=== PATIENT | male | born 1940 | race Caucasian/White ===

== ENCOUNTER 2020-03-31 14:14 | Inpatient (IN) | payer MEDICARE ==
[2020-03-31] MEDS ORDERED: solu-MEDROL 125 MG IV ONE (15:03)
[2020-03-31] MEDS ORDERED: VENTOLIN COMMON CANISTER IH PRN (15:04)
[2020-03-31] MEDS ORDERED: BABY ASPIRIN 81 MG CHEW PO ONE (15:04)
[2020-03-31] MEDS ORDERED: BABY ASPIRIN 81 MG CHEW ONE (15:37)
[2020-03-31] MEDS ORDERED: solu-MEDROL 125 MG ONE (15:37)
[2020-03-31 15:48] LABS: Absolute Neutrophil Ct (ANC) 4.37 (1.4-6.9); BASOPHIL % 0.4 % (0.0-0.4); Basophil (Absolute #) 0.02 (0-0.4); Eosinophil % 0.2 % (0.00-5.0); Eosinophil (Absolute #) 0.01 (0-0.5); Hematocrit 43.2 % (42-50); Hemoglobin 14.6 gm/dl (12.5-18.0); Lymphocytes % 12.4 % (24.0-44.0); Mean Cell Volume 87.8 fl (78-100); Mean Corpuscular Hemoglobin 29.7 pg (26-32); Mean Corpuscular Hgb Concent. 33.8 g/dl (32-36); Mean Platelet Volume 10.6 fl (7.5-11.0); Monocyte (Absolute #) 0.53 (0.0-1.3); Monocytes % 9.4 % (0.0-12.0); Neutrophil % 77.6 % (36.0-66.0); Platelet Count 180 K/mm3 (150-450); Red Blood Count 4.92 M/mm3 (4.1-5.6); Red Cell Distribution Width 15.9 % (11.5-14.0); White Blood Count 5.6 K/mm3 (4.0-10.5)
[2020-03-31 15:48] LABS: A-aADO2 119; ABG HEMOGLOBIN 15.1; ABG POTASSIUM 3.8 (3.5-5.1); ARTERIAL BLD GAS O2 SATURATION 95.5 % (95-100); ARTERIAL BLOOD GAS BASE EXCESS 0.9 (-2.0-2.0); ARTERIAL BLOOD GAS FIO2 32 %; ARTERIAL BLOOD GAS PCO2 32 mmHg (35-45); ARTERIAL BLOOD GAS PO2 69 mmHg (75-100); ARTERIAL BLOOD GAS pH 7.48 (7.35-7.45); CARBOXYHEMOGLOBIN 1.6 % THgb (0.0-6.9); HCO3- 23.8 (22-28); HGB O2 SAT 92.9 g/dF (94-100); Lactic Acid 0.9 (0.4-2.0); Methhemoglobin 1.1 % (1.4-1.5); paO2 pAO1 0.37
[2020-03-31 15:49] LABS: ABG SITE RIGHT RADIAL; ALLEN TEST OK? YES
--- NOTE | 2020-03-31 15:49 | ERPHSYRPT ---
- History of Present Illness Time Seen by Provider: 03/31/20 14:39 Source: patient Exam Limitations: no limitations Patient Subjective Stated Complaint: Pt began getting short of breath and coughing for the past couple of days that appears to be getting worse, pt also states that he has been having confusion too Triage Nursing Assessment: Pt brought self to the ER, hypertensive, hypoxic, pt's O2 was 80% on arrival and placed on 4L NC and it went to 97%, upper lobes clear, lower lobes diminished, pulses normal, denies pain, dry cough, skin n/w/d Physician History: 80 years old fairly healthy male presented in the ER with chief complaint of progressively worsening shortness of breath for the last 2 to 3 days initially with activity and now even at resting where he feels that he cannot catch a good breath in. Patient also report nonproductive cough associated with it along with decreased appetite/change in taste. Denies any nausea vomiting or diarrhea. No chest pain but has some tightness with shortness of breath especially on activity. No known COVID-19 sick contact. Patient also report experiencing transient episodes of confusion which resolved on its own without any focal numbness tingling or weakness. No difficulty speech or vision. On presentation in the ER his oxygen saturation is low 80s, placed on 4 L oxygen at improved in upper 90s. Patient report he is feeling better since he has been on oxygen on presentation. Timing/Duration: day(s) (2), gradual onset, worse Activities at Onset: activity Severity of Dyspnea-Max: moderate Severity of Dyspnea-Current: moderate Possible Cause: no prior episodes Modifying Factors: Improves With: oxygen. Worsens With: activity, coughing, deep breath, exertion Associated Symptoms: cough, loss of appetite, wheezing, weakness, chills, tightness, No productive cough Allergies/Adverse Reactions: Penicillins Allergy (Verified 03/31/20 14:32) Home Medications: Rivaroxaban [Xarelto] 20 mg PO DAILY 03/31/20 [History] Travel Risk - International Travel Have you traveled outside of the country in past 3 weeks: No - Coronavirus Screening Are you exhibiting any of the following symptoms?: No Close contact with a COVID-19 positive Pt in past 14-21 Days: No - Review of Systems Constitutional: Fatigue, Malaise, Weakness Eyes: No Symptoms Ears, Nose, & Throat: Nose Congestion Respiratory: Cough, Dyspnea, Dyspnea on Exertion (CERVANTES), Wheezing Cardiac: No Symptoms Abdominal/Gastrointestinal: No Symptoms Genitourinary Symptoms: No Symptoms Musculoskeletal: Myalgias Skin: No Symptoms Psychological: No Symptoms Endocrine: No Symptoms Hematologic/Lymphatic: No Symptoms Immunological/Allergic: No Symptoms - Past Medical History Pertinent Past Medical History: Yes Other Medical History: 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 - Past Surgical History Past Surgical History: Yes Gastrointestinal: Cholecystectomy Musculoskeletal: Orthopedic Surgery Other Surgical History: muscle flap right calf - Social History Smoking Status: Never smoker Exposure to second hand smoke: No Drug Use: none Patient Lives Alone: Yes - Nursing Vital Signs Nursing Vital Signs: Initial Vital Signs Temperature 99.4 F 03/31/20 14:16 Pulse Rate 90 03/31/20 14:16 Respiratory Rate 22 03/31/20 14:16 Blood Pressure 167/82 03/31/20 14:16 O2 Sat by Pulse Oximetry 90 L 03/31/20 14:16 Pain Scale Pain Intensity 0 - Physical Exam General Appearance: mild distress, alert Eye Exam: PERRL/EOMI, eyes nml inspection Ears, Nose, Throat Exam: hearing grossly normal, pharyngeal erythema Neck Exam: normal inspection, non-tender, supple, full range of motion Respiratory Exam: diminished breath sounds, accessory muscle use, crackles/ra les, wheezing Cardiovascular/Chest Exam: normal heart sounds, regular rate/rhythm Abdominal/Gastrointestinal Exam: soft, normal bowel sounds, No tenderness Extremity Exam: non-tender, normal range of motion Neurologic Exam: alert, oriented x 3, cooperative, car top bolter II-XII nml as tested, normal mood/affect, nml cerebellar function, sensation nml, No motor deficits, No sensory deficit Skin Exam: normal color SpO2 Interpretation: normal SpO2: 94 O2 Delivery: Nasal Cannula - Course EKG Interpreted by Me: RATE (88), Sinus Rhythm, NORMAL AXIS, Right Bundle Branch Block, Other (ST depression in lateral leads) Ordered Tests: Active Orders 24 hr Category Date Time Status Car Hop STAT Care 03/31/20 15:04 Active EKG-ER Only STAT Care 03/31/20 15:03 Active IV Insertion STAT Care 03/31/20 15:03 Active NPO (ED) STAT Care 03/31/20 15:03 Active CHEST 2 VIEWS (PA AND LAT) Stat Exams 03/31/20 15:04 Completed CHEST WITH CONTRAST [CT] Stat Exams 03/31/20 16:04 Completed ARTERIAL BLOOD GASES Stat Lab 03/31/20 15:03 Completed BLOOD CULTURE Stat Lab 03/31/20 14:37 Received CBC W DIFF Stat Lab 03/31/20 15:30 Completed CMP Stat Lab 03/31/20 15:30 Completed D-DIMER QUANTITATIVE Stat Lab 03/31/20 15:30 Completed Lactic Acid Stat Lab 03/31/20 15:03 Completed MAGNESIUM Stat Lab 03/31/20 15:30 Completed NT PRO BNP Stat Lab 03/31/20 15:30 Completed PROTIME WITH INR Stat Lab 03/31/20 15:30 Completed PTT Stat Lab 03/31/20 15:30 Completed TROPONIN Q3H Lab 03/31/20 15:30 Completed TROPONIN Q3H Lab 03/31/20 18:15 Ordered TROPONIN Q3H Lab 03/31/20 21:15 Ordered TROPONIN Q3H Lab 04/01/20 00:15 Ordered TROPONIN Q3H Lab 04/01/20 03:15 Ordered UA W/RFX UR CULTURE Stat Lab 03/31/20 15:03 Ordered Oxygen NASAL CANNULA 2 lpm RT 03/31/20 16:02 Active Respiratory MDI STAT RT 03/31/20 16:02 Active Respiratory Therapy Assessment DAILY RT 03/31/20 16:03 Active Transfer Order Routine Transfer 03/31/20 Ordered Medication Summary Generic Name Dose Route Start Last Admin Trade Name Freq PRN Reason Stop Dose Admin Albuterol Sulfate 4 puff 03/31/20 15:04 03/31/20 15:25 Ventolin Common Canister IH 04/30/20 15:03 4 puff Q4H PRN PRN Administration SHORTNESS OF BREATH/WHEEZING Remdesivir 200 mg/ Sodium 250 mls @ 125 mls/hr 03/31/20 17:10 Chloride IV 03/31/20 19:09 ONCE ONE Discontinued Medications Generic Name Dose Route Start Last Admin Trade Name Freq PRN Reason Stop Dose Admin Aspirin 324 mg 03/31/20 15:04 03/31/20 15:42 Baby Aspirin 81 Mg Chew PO 03/31/20 15:05 324 mg STAT ONE Administration Aspirin Confirm 03/31/20 15:37 Baby Aspirin 81 Mg Chew Administered 03/31/20 15:38 Dose 324 mg .ROUTE .STK-MED ONE Dexamethasone Sodium Phosphate 8 mg 03/31/20 17:10 Decadron 4 Mg Inj IV 03/31/20 17:11 STAT ONE Azithromycin 500 mg in 250 mls @ 250 mls/hr 03/31/20 15:51 03/31/20 17:12 Zithromax 500 Mg/ 250 Ml Nacl Premix IV 03/31/20 16:50 250 mls/hr STAT STA 250 mls/hr Administration Ceftriaxone Sodium/Dextrose 2 g in 50 mls @ 100 mls/hr 03/31/20 15:51 03/31/20 16:51 Rocephin 2 Gm-D5w 50ml Bag IV 03/31/20 16:20 100 mls/hr STAT STA 100 mls/hr Administration Ceftriaxone Sodium/Dextrose Confirm 03/31/20 16:48 Rocephin 2 Gm-D5w 50ml Bag Administered 03/31/20 16:49 Dose 2 g in 50 mls @ ud IV .STK-MED ONE Azithromycin Confirm 03/31/20 17:10 Zithromax 500 Mg/ 250 Ml Nacl Premix Administered 03/31/20 17:11 Dose 500 mg in 250 mls @ ud IV .STK-MED ONE Methylprednisolone Sodium Succinate 125 mg 03/31/20 15:03 03/31/20 15:42 Solu-Medrol 125 Mg IV 03/31/20 15:04 125 mg STAT ONE Administration Methylprednisolone Sodium Succinate Confirm 03/31/20 15:37 Solu-Medrol 125 Mg Administered 03/31/20 15:38 Dose 125 mg .ROUTE .STK-MED ONE Lab/Rad Data: Laboratory Result Diagrams 03/31/20 15:30 03/31/20 15:30 Laboratory Results 03/31/20 03/31/20 03/31/20 Range/Units 15:54 15:30 15:30 WBC (4.0-10.5) K/mm3 RBC (4.1-5.6) M/mm3 Hgb (12.5-18.0) gm/dl Hct (42-50) % MCV (78-100) fl MCH (26-32) pg MCHC (32-36) g/dl RDW (11.5-14.0) % Plt Count (150-450) K/mm3 MPV (7.5-11.0) fl Gran % (36.0-66.0) % Eos # (Auto) (0-0.5) Absolute Lymphs (auto) (1.0-4.6) Absolute Monos (auto) (0.0-1.3) Lymphocytes % (24.0-44.0) % Monocytes % (0.0-12.0) % Eosinophils % (0.00-5.0) % Basophils % (0.0-0.4) % Absolute Granulocytes (1.4-6.9) Basophils # (0-0.4) PT 14.9 H (8.83-12.87) SECONDS INR 1.31 (0.8-3.0) APTT 32.9 (24.1-36.1) SECONDS D-Dimer 1708 H* (215-500) ng/mL Puncture Site pCO2 (35-45) mmHg pO2 (75-100) mmHg Base Excess (-2.0-2.0) O2 Saturation (94-100) g/dF ABG pH (7.35-7.45) ABG HCO3 (22-28) ABG O2 Sat (Measured) (95-100) % Jeremie Test A-a Gradient a/A Ratio Hemoglobin Carboxyhemoglobin (0.0-6.9) % THgb Methemoglobin (1.4-1.5) % Potassium (3.5-5.1) Temperature C POC O2 Flow Rate % Sodium (137-145) mmol/L Chloride (98-107) mmol/L Carbon Dioxide (22-30) mmol/L Anion Gap (5-15) MEQ/L BUN (9-20) mg/dL Creatinine (0.66-1.25) mg/dL Estimated GFR ML/MIN Glucose (74-106) mg/dL Lactic Acid (0.4-2.0) Calcium (8.4-10.2) mg/dL Magnesium (1.6-2.3) mg/dL Total Bilirubin (0.2-1.3) mg/dL AST (17-59) U/L ALT (0-50) U/L Alkaline Phosphatase (38-126) U/L Troponin I 0.097 H* (0.000-0.034) ng/mL NT-Pro-B Natriuret Pep (0-1800) pg/mL Serum Total Protein (6.3-8.2) g/dL Albumin (3.5-5.0) g/dL SARS-CoV-2 (PCR) POSITIVE A (NEGATIVE) 03/31/20 03/31/20 03/31/20 Range/Units 15:30 15:30 15:03 WBC 5.6 (4.0-10.5) K/mm3 RBC 4.92 (4.1-5.6) M/mm3 Hgb 14.6 (12.5-18.0) gm/dl Hct 43.2 (42-50) % MCV 87.8 (78-100) fl MCH 29.7 (26-32) pg MCHC 33.8 (32-36) g/dl RDW 15.9 H (11.5-14.0) % Plt Count 180 (150-450) K/mm3 MPV 10.6 (7.5-11.0) fl Gran % 77.6 H (36.0-66.0) % Eos # (Auto) 0.01 (0-0.5) Absolute Lymphs (auto) 0.70 L (1.0-4.6) Absolute Monos (auto) 0.53 (0.0-1.3) Lymphocytes % 12.4 L (24.0-44.0) % Monocytes % 9.4 (0.0-12.0) % Eosinophils % 0.2 (0.00-5.0) % Basophils % 0.4 (0.0-0.4) % Absolute Granulocytes 4.37 (1.4-6.9) Basophils # 0.02 (0-0.4) PT (8.83-12.87) SECONDS INR (0.8-3.0) APTT (24.1-36.1) SECONDS D-Dimer (215-500) ng/mL Puncture Site RIGHT RADIAL pCO2 32 L (35-45) mmHg pO2 69 L (75-100) mmHg Base Excess 0.9 (-2.0-2.0) O2 Saturation 92.9 L (94-100) g/dF ABG pH 7.48 H (7.35-7.45) ABG HCO3 23.8 (22-28) ABG O2 Sat (Measured) 95.5 (95-100) % Jeremie Test YES A-a Gradient 119 a/A Ratio 0.37 Hemoglobin 15.1 Carboxyhemoglobin 1.6 (0.0-6.9) % THgb Methemoglobin 1.1 L (1.4-1.5) % Potassium 3.8 3.8 (3.5-5.1) Temperature 37.0 C POC O2 Flow Rate 32 % Sodium 133 L (137-145) mmol/L Chloride 100 (98-107) mmol/L Carbon Dioxide 26 (22-30) mmol/L Anion Gap 10.5 (5-15) MEQ/L BUN 9 (9-20) mg/dL Creatinine 0.51 L (0.66-1.25) mg/dL Estimated GFR > 60.0 ML/MIN Glucose 104 (74-106) mg/dL Lactic Acid 0.9 (0.4-2.0) Calcium 8.4 (8.4-10.2) mg/dL Magnesium 1.8 (1.6-2.3) mg/dL Total Bilirubin 0.80 (0.2-1.3) mg/dL AST 48 (17-59) U/L ALT 26 (0-50) U/L Alkaline Phosphatase 53 (38-126) U/L Troponin I (0.000-0.034) ng/mL NT-Pro-B Natriuret Pep 527 (0-1800) pg/mL Serum Total Protein 6.6 (6.3-8.2) g/dL Albumin 3.6 (3.5-5.0) g/dL SARS-CoV-2 (PCR) (NEGATIVE) - Progress Progress: improved, re-examined Air Movement: fair Progress Note: 03/31/20 17:15 Patient was hypoxic on presentation with sats in low 80s, placed on 4 L oxygen and improved to 96% and his distress is also improved. Patient is feeling better. He is given albuterol inhaler and steroids. EKG showed sinus rhythm with some ST depression in lateral leads but patient denies any chest pain. Initial troponin 0 0.097 and chest x-ray consistent with bilateral airspace disease. I believe part of elevated troponin is secondary to hypoxemia and lung disease. We will continue to monitor troponins. He is started on Jacob ephin/Zithromax. With patient's hypoxemia/shortness of breath and transient confusions is high risk for COVID-19 and I have obtained testing which is positive. He is given a dose of remdesivir. I have discussed with Dr. Farfan and patient is being admitted. Blood Culture(s) Obtained: Yes Antibiotics given: Yes Discussed with : Other (Keturah) Will see patient in: hospital (full admit) Counseled pt/family regarding: lab results, diagnosis, rad results - Departure Departure Disposition: In-patient Admission Clinical Impression: Elevated troponin Respiratory failure Qualifiers: Chronicity: acute Respiratory failure complication: hypoxia Qualified Code(s): J96.01 - Acute respiratory failure with hypoxia Pneumonia Qualifiers: Pneumonia type: due to unspecified organism Laterality: bilateral Lung location: unspecified part of lung Qualified Code(s): J18.9 - Pneumonia, u nspecified organism Condition: Fair Critical Care Time: Yes Critical Care Time(excluding separately billable procedures): Critical 30-74 mins Referrals: Provider,Unknown [Primary Care Provider] -
[2020-03-31] MEDS ORDERED: Zithromax 500 MG/ 250 ML NaCl Premix 500 MG/250 ML IVPB IV STA (15:51)
[2020-03-31] MEDS ORDERED: ROCEPHIN 2 Gm-D5w 50ML BAG** 2 G/50 ML IVPB IV STA (15:51)
[2020-03-31 15:54] LABS: INR 1.31 (0.8-3.0); PROTIME 14.9 SECONDS (8.83-12.87)
[2020-03-31 15:57] LABS: PTT 32.9 SECONDS (24.1-36.1)
[2020-03-31 16:07] LABS: ALBUMIN 3.6 g/dL (3.5-5.0); ALKALINE PHOSPHATASE 53 U/L (38-126); ANION GAP 10.5 MEQ/L (5-15); BLOOD UREA NITROGEN 9 mg/dL (9-20); CHLORIDE 100 mmol/L (98-107); Calcium 8.4 mg/dL (8.4-10.2); Carbon Dioxide 26 mmol/L (22-30); Creatinine 1 0.51 mg/dL (0.66-1.25); EST GLOMERULAR FILTRATION RATE > 60.0 ML/MIN; Glucose 104 mg/dL (74-106); MAGNESIUM 1.8 mg/dL (1.6-2.3); NT PRO BNP 527 pg/mL (0-1800); Potassium 3.8 mmol/L (3.5-5.1); SGOT/AST 48 U/L (17-59); SGPT/ALT 26 U/L (0-50); SODIUM 133 mmol/L (137-145); Total Protein 6.6 g/dL (6.3-8.2)
--- NOTE | 2020-03-31 16:17 | XRAY ---
Indication: Short of breath. Suspect Covid 19. Comparison: None PA/lateral chest limited by respiration/motion artifact. Diffuse left lung and lesser degree right lung airspace disease with tiny left effusion. Heart is borderline enlarged. Bony thorax intact.
[2020-03-31] MEDS ORDERED: ROCEPHIN 2 Gm-D5w 50ML BAG** 2 G/50 ML IVPB IV ONE (16:48)
--- NOTE | 2020-03-31 17:01 | XRAY ---
Indication: Cough and short of breath. Elevated d-dimer. Suspect Covid 19. Multiple contiguous axial images obtained through the chest using 100 cc Isovue 370 contrast and PE protocol. Comparison: None There is good opacification of the pulmonary arteries including lobar and segmental branches. No pulmonary embolus. Heart is enlarged. Aorta is minimally arteriosclerotic without aneurysm/dissection. Tiny subcarinal calcified nodes. No pathologic mediastinal/hilar lymphadenopathy. Lungs demonstrates diffuse bilateral airspace disease, left greater than right. No consolidation or effusion. Bony thorax intact with mild degenerative changes throughout the spine. Limited upper abdomen demonstrates cholecystectomy and 3 cm noncalcified left adrenal gland mass possibly adenoma. Impression: 1. Negative pulmonary embolus. 2. Diffuse airspace disease, left greater than right without consolidation/effusion. 3. Cardiomegaly without CHF. 4. 3 cm left adrenal gland mass. Rule out adenoma. Outside comparison studies recommended if available. If not, a noncontrast exam or noncontrast MRI documenting fatty density could confirm.
[2020-03-31] MEDS ORDERED: REMDESIVIR 200 MG in Sodium Chloride 0.9% 250 ML 250 ML IV ONE ×2 (17:10→20:00)
[2020-03-31] MEDS ORDERED: Decadron 4 MG INJ IV ONE (17:10)
[2020-03-31] MEDS ORDERED: Zithromax 500 MG/ 250 ML NaCl Premix 500 MG/250 ML IVPB IV ONE (17:10)
[2020-03-31] MEDS ORDERED: Decadron 4 MG INJ ONE ×2 (17:48→22:42)
[2020-03-31] MEDS ORDERED: Zofran 4 MG/2 ML VIAL IV PRN (18:17)
[2020-03-31] MEDS ORDERED: HUMALOG SQ PRN (18:17)
[2020-03-31] MEDS ORDERED: TYLENOL 325 MG PO PRN (18:17)
[2020-03-31] MEDS ORDERED: REMDESIVIR IV ONE (18:52)
[2020-03-31] MEDS ORDERED: Sodium Chloride 0.9% 250 ML 250 ML IV ONE (18:52)
[2020-03-31] MEDS ORDERED: VENTOLIN COMMON CANISTER IH SCH (19:00)
[2020-03-31] MEDS ORDERED: DECADRON 10MG INJ. IV SCH (21:00)
[2020-03-31 21:21] LABS: A-aADO2 162; ABG HEMOGLOBIN 15.6; ABG POTASSIUM 3.9 (3.5-5.1); ABG SITE RIGHT BRACHIAL; ARTERIAL BLD GAS O2 SATURATION 99.1 % (95-100); ARTERIAL BLOOD GAS BASE EXCESS 0.9 (-2.0-2.0); ARTERIAL BLOOD GAS FIO2 44 %; ARTERIAL BLOOD GAS PCO2 32 mmHg (35-45); ARTERIAL BLOOD GAS PO2 112 mmHg (75-100); ARTERIAL BLOOD GAS pH 7.48 (7.35-7.45); CARBOXYHEMOGLOBIN 1.4 % THgb (0.0-6.9); HCO3- 23.8 (22-28); HGB O2 SAT 96.7 g/dF (94-100); paO2 pAO1 0.41
[2020-03-31] MEDS: Pepcid 20 MG VIAL IV SCH (23:53)
[2020-04-01 00:46] LABS: Appearance CLEAR (CLEAR); Bilirubin NEGATIVE (NEGATIVE); Blood NEGATIVE Ery/ul (0-5); Glucose NEGATIVE (NEGATIVE); Ketones SMALL (NEGATIVE); Leukocyte Esterase NEGATIVE (NEGATIVE); Nitrite NEGATIVE (NEGATIVE); Protein,Urine Dip NEGATIVE (Negative); Specific Gravity 1.019 (1.005-1.025); Urobilinogen NEGATIVE mg/dL (0-1)
[2020-04-01 03:55] LABS: ALBUMIN 3.1 g/dL (3.5-5.0); ALKALINE PHOSPHATASE 52 U/L (38-126); ANION GAP 10.2 MEQ/L (5-15); BLOOD UREA NITROGEN 11 mg/dL (9-20); CHLORIDE 105 mmol/L (98-107); Calcium 8.7 mg/dL (8.4-10.2); Carbon Dioxide 28 mmol/L (22-30); Creatinine 1 0.44 mg/dL (0.66-1.25); EST GLOMERULAR FILTRATION RATE > 60.0 ML/MIN; Glucose 149 mg/dL (74-106); Potassium 4.2 mmol/L (3.5-5.1); SGOT/AST 42 U/L (17-59); SGPT/ALT 26 U/L (0-50); SODIUM 139 mmol/L (137-145); Total Protein 5.8 g/dL (6.3-8.2)
[2020-04-01 05:30] LABS: Absolute Neutrophil Ct (ANC) 2.76 (1.4-6.9); BASOPHIL % 0.3 % (0.0-0.4); Basophil (Absolute #) 0.01 (0-0.4); Eosinophil % 0.3 % (0.00-5.0); Eosinophil (Absolute #) 0.01 (0-0.5); Hematocrit 46.6 % (42-50); Hemoglobin 15.4 gm/dl (12.5-18.0); Lymphocyte (Absolute #) 0.45 (1.0-4.6); Mean Cell Volume 88.4 fl (78-100); Mean Corpuscular Hemoglobin 29.2 pg (26-32); Mean Platelet Volume 11.2 fl (7.5-11.0); Monocyte (Absolute #) 0.23 (0.0-1.3); Monocytes % 6.6 % (0.0-12.0); Neutrophil % 79.8 % (36.0-66.0); Platelet Count 193 K/mm3 (150-450); Red Blood Count 5.27 M/mm3 (4.1-5.6); Red Cell Distribution Width 16.3 % (11.5-14.0); White Blood Count 3.5 K/mm3 (4.0-10.5)
[2020-04-01 06:11] LABS: Slide Review 1 YES
[2020-04-01] MEDS: Decadron 4 MG INJ IV SCH ×2 (09:18→21:52)
[2020-04-01] MEDS: Pepcid 20 MG VIAL IV SCH ×2 (09:18→21:52)
[2020-04-01] MEDS: XARELTO 10 MG TABLET PO SCH (09:19)
--- NOTE | 2020-04-01 09:49 | HP ---
CHIEF COMPLAINT: Confusion, cough. HISTORY OF PRESENT ILLNESS: The patient is a 80 year old white male who has been tired, coughing and he is confused which is unusual for him for the last five days. He finally went over to get a COVID test at the outpatient respiratory clinic. They would not do him because he did not have a respiratory situation. He called his own doctor who would not see him because he was coughing. He was driving around when the nurse from his primary doctor called him up and told him to the emergency room which they evaluated him and he had a positive COVID test. Chest x-ray which looks like COVID pneumonia and O2 of 80% on room air. With 5 liters of oxygen his O2 came up to 92% and he is presently at 3 with an O2 of about 88%. He is a nonsmoker, nondrinker. He lives by himself with his cocker spaniel who is blind for the last 12 years and working on getting dog care. He has a great sense of humor. I thought he was a little demented but really mostly just obtuse humor. He said he has had no belly aching. No myalgia. No fever that he knows of but his cough is more and more frequent and it has made his chest ache with coughing. He does not have any subdural heaviness, neck pain. He does not think that he has had infarct. He has had apparently pulmonary emboli before because he is on Xarelto. He states that he needs to be on that. This may well be related to horrible lower leg/knee injury on the right where they basically took his bone grafts and over a period of a year or two that the tibia had grown back it sounds like. MEDICATIONS: Xarelto. ALLERGIES: PENICILLINS. REVIEW OF SYSTEMS: HEENT: No problems hearing or seeing. CHEST: Frequent cough, dry, normally no cough. Shortness of breath at rest. CVS: No exertional chest pain, pressure. No radiation to the neck or arms. ABDOMEN: No nausea. Not hungry for five days which is unusual. EXTREMITIES: Numerous years ago probably ten he said he had a compound fracture of tib/fib lower leg which was shattered and Dr. Christy cruz at [place] at that time put it together. It has been several years and has healed up pretty well. There is no chronic infection in it. PHYSICAL EXAMINATION: The patient is alert, orientated. He is in pretty good shape for 80. He has a dry cough that is frequent. HEENT: Pupils equal and reactive to light. Hearing seems adequate. CHEST: Few crackles bilateral. CVS: No murmurs or gallops. ABDOMEN: Soft, obese. No tenderness or organomegaly. EXTREMITIES: Scars. Infection of the skin on the right leg. No edema of either leg. IMPRESSION: The patient has acute COVID symptomatic for several days with feeling of confusion and frequent dry cough. He had a positive D-dimer as suspected from the COVID and he has an elevated cardiac enzyme as we usually see however EKG is normal. He is having no chest pain. I think this is secondary to COVID, will keep him on monitoring for that and anticoagulated him. He has been started on Decadron and the other COVID medicines at this time and he is stable.
[2020-04-01] MEDS ORDERED: Zithromax 500 MG/ 250 ML NaCl Premix 500 MG/250 ML IVPB IV SCH (10:00)
[2020-04-01] MEDS ORDERED: ROCEPHIN 1 Gm-D5w 50 ml Bag** 1 G/50 ML IVPB IV SCH (10:00)
--- NOTE | 2020-04-01 11:51 | PROG NOTE ---
DIAGNOSES: 1) COVID pneumonia. 2) Hypertension. 3) Hypoxia. HISTORY: The patient was admitted from the emergency room yesterday. He feels markedly better. However, he is on 6 liters of oxygen and without any drops. He has a stopped up nose, frequent dry cough and diarrhea. He is very anxious to go home as soon as possible. He said he lives across the street. I explained to him with his level of oxygenation it was not safe especially just into this disease. He is agreeable person with a good attitude. PHYSICAL EXAMINATION: CHEST: Few crackles. CVS: Heart sounds regular. EXTREMITIES: No cyanosis. No edema. IMPRESSION: COVID pneumonia stable on nasal cannula at 4. On Xarelto for history of deep venous thrombosis as well as his D-dimer being elevated here. Will add plasma at this time.
[2020-04-01 14:27] LABS: ABO TYPING O; Antibody Screen NEGATIVE (NEGATIVE); RH TYPING POSITIVE
[2020-04-01] MEDS ORDERED: Sodium Chloride 0.9% 500 ML 500 ML IV ONE (14:32)
[2020-04-01] MEDS ORDERED: Sodium Chloride 0.9% 500 ML 500 ML IV SCH (14:45)
[2020-04-01] MEDS: VENTOLIN COMMON CANISTER IH PRN (15:55)
[2020-04-01] MEDS: REMDESIVIR 100 MG in Sodium Chloride 0.9% 100 ML IVPB 100 ML IV SCH (18:08)
[2020-04-01] MEDS: Bactroban OINTMENT TP SCH (21:52)
[2020-04-02] MEDS: VENTOLIN COMMON CANISTER IH PRN (08:40)
[2020-04-02 08:52] LABS: A-aADO2 482; ABG HEMOGLOBIN 15.9; ABG POTASSIUM 3.6 (3.5-5.1); ARTERIAL BLOOD GAS BASE EXCESS 2.8 (-2.0-2.0); ARTERIAL BLOOD GAS FIO2 80 %; ARTERIAL BLOOD GAS PCO2 35 mmHg (35-45); ARTERIAL BLOOD GAS pH 7.48 (7.35-7.45); CARBOXYHEMOGLOBIN 1.7 % THgb (0.0-6.9); HCO3- 26.1 (22-28); HGB O2 SAT 78.1 g/dF (94-100); Methhemoglobin 0.7 % (1.4-1.5); paO2 pAO1 0.09
[2020-04-02 08:53] LABS: ARTERIAL BLOOD GAS PO2 45 mmHg (75-100)
[2020-04-02] MEDS: Bactroban OINTMENT TP SCH ×2 (09:25→21:10)
[2020-04-02] MEDS: XARELTO 10 MG TABLET PO SCH (09:25)
[2020-04-02] MEDS: Pepcid 20 MG VIAL IV SCH ×2 (09:25→21:19)
[2020-04-02] MEDS: Decadron 4 MG INJ IV SCH ×2 (09:25→21:05)
[2020-04-02] MEDS: Ativan 1 MG PO PRN ×2 (09:25→18:03)
--- NOTE | 2020-04-02 09:50 | PROG NOTE ---
DATE: 04/02/2020 CHIEF COMPLAINT: Wants to be home, feels short of breath. HOSPITAL COURSE: The patient has bilateral COVID pneumonia. His oxygen demands have increased and he is now on nasal cannula at like 8 liters. His blood gas showed his pO2 was only like 45. Amazingly he is pink, talking and not really saying he is short of breath all the time. He has increased cough nonproductive. He has no GI complaints. CT scan showed diffuse airspace disease left greater than right without consolidation. He is anxious. He does not watch television. Worries about his dog. He cannot believe he's sick. He's always been so healthy. Once again we explained to him the disease process that the medicines help but will not quickly cure, that his body has to fight it off and it is going to take time. He finally agreed to take 0.5 mg of Ativan to try to control his anxiety since he does not read, will not watch television and spends his time on the phone with several friends, I guess. I will continue to increase his oxygen if needed. There is nothing else at this point left to add. He had plasma yesterday without problems. IMPRESSION: 1) COVID pneumonia. 2) Generalized anxiety. 3) Some delirium which he admits he is confused and cannot think like he normally does. PROGNOSIS: Guarded.
[2020-04-02] MEDS ORDERED: Haldol 5 MG IM PRN ×2 (13:53→21:40)
[2020-04-02] MEDS: REMDESIVIR 100 MG in Sodium Chloride 0.9% 100 ML IVPB 100 ML IV SCH (18:00)
[2020-04-02 19:46] VITALS: BP 146/84; PULSE 85
[2020-04-02] MEDS ORDERED: Tussionex Pennkinetic Susp PO SCH (21:45)
[2020-04-02] MEDS ORDERED: Tussionex Pennkinetic Susp ONE (21:45)
[2020-04-02] MEDS ORDERED: Ativan 2 MG/1 ML VIAL ONE (22:19)
[2020-04-02] MEDS ORDERED: Ativan 2 MG/1 ML VIAL IV ONE (22:23)
[2020-04-02] MEDS ORDERED: Phenergan 25 MG INJ ONE (22:30)
[2020-04-02] MEDS ORDERED: VERSED 5 MG/5 ML IV ONE (22:35)
[2020-04-02] MEDS ORDERED: Phenergan 25 MG INJ IV ONE (22:38)
[2020-04-02] MEDS ORDERED: Lasix 20 MG/2 ML IV ONE (22:43)
[2020-04-02] MEDS ORDERED: Lasix 20 MG/2 ML ONE (22:44)
[2020-04-02] MEDS ORDERED: Sodium Chloride 0.9% 1000 ML 1,000 ML ONE (22:48)
[2020-04-02] MEDS ORDERED: Lanoxin 0.5 MG/2 ML INJECTION IV ONE ×2 (22:50→23:10)
[2020-04-02] MEDS ORDERED: Lanoxin 0.5 MG/2 ML INJECTION ONE (22:51)
[2020-04-02 22:52] LABS: A-aADO2 627; ABG HEMOGLOBIN 16.4; ABG POTASSIUM 3.8 (3.5-5.1); ABG SITE RIGHT RADIAL; ALLEN TEST OK? YES; ARTERIAL BLD GAS O2 SATURATION 86.2 % (95-100); ARTERIAL BLOOD GAS BASE EXCESS -3.8 (-2.0-2.0); ARTERIAL BLOOD GAS FIO2 100 %; ARTERIAL BLOOD GAS PCO2 27 mmHg (35-45); ARTERIAL BLOOD GAS PO2 52 mmHg (75-100); ARTERIAL BLOOD GAS pH 7.45 (7.35-7.45); CARBOXYHEMOGLOBIN 1.5 % THgb (0.0-6.9); HCO3- 18.8 (22-28); HGB O2 SAT 84.3 g/dF (94-100); Methhemoglobin 0.8 % (1.4-1.5); paO2 pAO1 0.08
[2020-04-02] MEDS ORDERED: Versed 50 MG/ 10 Ml MDV*** 50 MG in Sodium Chloride 0.9% 250 ML 240 ML IV PRN (22:56)
[2020-04-02] MEDS ORDERED: Versed 50 MG/ 10 Ml MDV ONE (22:58)
[2020-04-02] MEDS ORDERED: Sodium Chloride 0.9% 250 ML 250 ML IV ONE (22:58)
[2020-04-03 00:08] LABS: ALBUMIN 3.3 g/dL (3.5-5.0); ALKALINE PHOSPHATASE 97 U/L (38-126); ANION GAP 12.4 MEQ/L (5-15); BLOOD UREA NITROGEN 17 mg/dL (9-20); CHLORIDE 108 mmol/L (98-107); Calcium 8.8 mg/dL (8.4-10.2); Carbon Dioxide 24 mmol/L (22-30); Creatinine 1 0.66 mg/dL (0.66-1.25); EST GLOMERULAR FILTRATION RATE > 60.0 ML/MIN; Glucose 183 mg/dL (74-106); Potassium 3.9 mmol/L (3.5-5.1); SGOT/AST 81 U/L (17-59); SGPT/ALT 33 U/L (0-50); SODIUM 141 mmol/L (137-145); Total Protein 6.2 g/dL (6.3-8.2)
[2020-04-03] MEDS ORDERED: Sodium Chloride 0.9% 1000 ML 1,000 ML ONE (00:19)
[2020-04-03] MEDS ORDERED: Zemuron 100 MG/10 ML IV ONE (00:33)
[2020-04-03] MEDS ORDERED: Dopamine 400 MG/D5W 250ML PREMIX 250 ML IV ONE (00:42)
[2020-04-03] MEDS ORDERED: EPINEPHRINE ABBOJECT 1 MG IV ONE (00:42)
[2020-04-03] MEDS ORDERED: ATROPINE SULFATE 1MG SYR ABBOJECT IV ONE (00:42)
[2020-04-03 01:31] LABS: Appearance CLEAR (CLEAR); Bilirubin NEGATIVE (NEGATIVE); Blood SMALL Ery/ul (0-5); Glucose NEGATIVE (NEGATIVE); Ketones NEGATIVE (NEGATIVE); Leukocyte Esterase NEGATIVE (NEGATIVE); Mucus SLIGHT /HPF (NEGATIVE); Nitrite NEGATIVE (NEGATIVE); Protein,Urine Dip >=500 (Negative); RBC 0-2 /HPF (0-2); Specific Gravity 1.022 (1.005-1.025); Urobilinogen NEGATIVE mg/dL (0-1)
[2020-04-03 03:09] VITALS: O2SAT 77
--- NOTE | 2020-04-07 13:33 | DS ---
ADMISSION DIAGNOSES: 1) COVID pneumonia. 2) Confusion from COVID. 3) History of deep venous thrombosis. DATE OF : 04/03/2020 at approximately 0100 hours. FINAL DIAGNOSIS/CAUSE OF : COVID PNEUMONIA. HOSPITAL COURSE: The patient presented to the hospital with some confusion, cough and was admitted with a positive COVID test. Extremely high D-dimer 1500 which had gone up to 8000 before being coded. The first day he was fairly comfortable and a little confused at night. Kept his O2 above 90. He had a fever. He was treated with convalescent plasma, Decadron 8 mg IV and Remdesivir in standard fashion. His troponin initially was mildly elevated at 0.102 and it did go up to 1.04. He had no chest pain except with coughing. On the night of , he deteriorated rather rapidly. He had some confusion during the afternoon. He fell asleep and slept until approximately 2200 hours when he got up to go to the toilet. He got very confused and agitated. The nurses finally got him to bed but he would not stop fighting, pushing and trying to get out of bed and calling out incomprehensively. They tried to sedate him with some Ativan, some Haldol and I was called in. At that time we gave some Phenergan which he quieted down. He was noted to be in atrial fibrillation with a rate of 150, blood pressure was 150/90. His O2 saturation initially was 60 and we managed to get it up to 82 with BiPAP 100%. After talking to the physician on the ICU at [facility], they asked us to intubate him for transfer. He was stable. He did eventually fight the intubation so we had to paralyze him and this was done fairly easy. He was intubated without difficulty. At that time though we lost blood pressure, heart rate in asystole and kind of a dying rhythm with no pulse. CPR was started immediately. He was treated with epinephrine and atropine and would have a slow rate. Occasionally would be able to palpate pulse but that always fell off within a minute or two. We did CPR for 45 minutes with no real sustainable rhythm. We had large amounts of blood coming out of the ET tube probably due to his anticoagulation and COVID pneumonia and that was pulled and we bagged him for the last ten minutes. Code was called because of no accessible rhythm was ever obtained. I called the daughter about 0150 hours and advised that her father from COVID pneumonia, cardiac arrest, respiratory arrest.
== END 2020-04-03 01:30 | disposition expired | DRG 177 ==
LOC: ED 14:14 → MED SURG 18:00
PROVIDERS: ADMIT Family Medicine; ATTEND Family Medicine
DX: U07.1 COVID-19 (principal); J12.89 Other viral pneumonia; R41.0 Disorientation, unspecified; R05 Cough; Z86.718 Personal history of other venous thrombosis and embolism; Z79.01 Long term (current) use of anticoagulants; I10 Essential (primary) hypertension; R19.7 Diarrhea, unspecified; R79.1 Abnormal coagulation profile; F41.9 Anxiety disorder, unspecified
CPT/HCPCS: 31500; 36000; 36415; 36430; 36600; 71046; 71260; 80053; 81001; 82375; 82803; 83605; 83735; 83880; 84484; 85025; 85379; 85610; 85730; 86850; 86900; 86901; 86931; 87040; 87086; 92950; 93005; 93041; 94002; 94640; 94762; 96365; 96367; 96374; 96375; 99285; 99291; U0003; J0171; J0456; J0461; J0696; J1100; J1160; J1265; J1630; J1940; J2060; J2250; J2550; J2930; A9270-GY